=== PATIENT | female | born 1975 | race Caucasian/White ===

== ENCOUNTER → 2023-06-05 23:09 | Outpatient (CLI) | payer OTHER, SELFPAY ==
[2023-06-05 18:59] LABS: Amphetamine/Metha Screen,Urine Negative ng/ml (<1000)
[2023-06-05 19:00] LABS: Barbiturates Screen,Urine Negative ng/ml (<200); Benzodiazepines Screen,Urine Negative ng/ml (<200)
[2023-06-05 19:02] LABS: Cannabinoid Screen,Urine Negative ng/ml (<50)
[2023-06-05 19:03] LABS: Cocaine Screen,Urine Negative ng/ml (<300); Methadone Screen,Urine Negative ng/ml (<300)
[2023-06-05 19:04] LABS: Microalbumin < 6.000 mg/L (0-16.7); Opiate Screen,Urine Negative ng/ml (<300)
[2023-06-05 19:05] LABS: Phencyclidine Screen,Urine Negative ng/ml (<25)
[2023-06-05 19:08] LABS: Alanine Aminotransferase 38 U/L (12-78); Albumin Level 4.1 g/dl (3.5-5.0); Alkaline Phosphatase 133 U/L (38-126); Anion Gap 14.8 mEq/L (5-15); Aspartate Amino Transferase 45 U/L (14-36); Bilirubin,Total 0.3 mg/dl (0.2-1.3); Blood Urea Nitrogen 14 mg/dl (7-17); Calcium 10.2 mg/dl (8.4-10.2); Carbon Dioxide 34 mmol/L (22.0-30.0); Chloride 93 mmol/L (98-107); Cholesterol 203 mg/dl (140-200); Erythrocyte Sedimentation Rate 43 mm/hr (0-20); Estimated Glomerular Filt Rate 67 ml/min (>60); GFR (African American) 82 ML/MIN (>60); Glucose 100 mg/dl (74-100); HDL Cholesterol 68 mg/dl (40-60); Potassium 3.8 mmoL/L (3.5-5.1); Sodium 138 mmol/L (136-145); Total Protein,Serum 8.1 g/dl (6.3-8.2); Triglycerides 148 mg/dl (30-150); VLDL Cholesterol 30 mg/dL (0-40)
[2023-06-05 19:11] LABS: Basophils # 0.1 K/mm3 (0-0.2); Basophils % 0.8 % (0.1-2.0); Creatinine,Urine Random 22 mg/dL (Not Estab.); Eosinophils # 0.2 K/mm3 (0.0-0.4); Eosinophils % 2.7 % (0.1-12.0); Hematocrit 41.5 % (37.0-47.0); Hemoglobin 14.2 g/dL (12.2-16.2); Lymphocytes # 4.3 K/mm3 (0.7-4.5); Mean Corpuscular HGB Conc 34.3 g/dL (31.8-35.4); Mean Corpuscular Hemoglobin 31.6 pg (27.0-31.2); Mean Corpuscular Volume 92.3 fl (81-99); Mean Platelet Volume 9.6 fl (7.4-10.4); Monocytes # 0.4 K/mm3 (0.1-1.0); Monocytes % 4.5 % (1.7-9.3); Neutrophils # 3.8 K/mm3 (1.8-7.8); Platelet Count 237 K/mm3 (142-424); Red Blood Count 4.49 M/mm3 (4.20-5.40); Red Cell Distribution Width 13.7 % (11.5-17.5); White Blood Count 8.8 K/mm3 (4.8-10.8)
[2023-06-05 19:18] LABS: C-Reactive Protein 4.8 mg/L (0-4)
[2023-06-07 09:47] LABS: HBsAg Screen Negative (Negative); HCV Ab Non Reactive (Non Reactive); HIV Screen 4th Generation wRfx Non Reactive (Non Reactive); Hep A Ab, IGM Negative (Negative); Hep B Core Ab, IgM Negative (Negative)
[2023-06-23 08:52] LABS: Rheumatoid Factor IGA < 7 U (<7)
== END ==
PROVIDERS: PCP Internal Medicine; Visit Provider Internal Medicine
DX: I00 Rheumatic fever without heart involvement (principal); Z79.899 Other long term (current) drug therapy; Z11.4 Encounter for screening for human immunodeficiency virus [HIV]
CPT/HCPCS: 80053; 80061; 80074; 80305; 82043; 82570; 84443; 85025; 85651; 86140; 86431; 86703; G0432

== ENCOUNTER → 2023-07-07 10:23 | Outpatient (CLI) | payer OTHER, SELFPAY ==
[2023-07-07 18:33] LABS: Barbiturates Screen,Urine Negative ng/ml (<200)
[2023-07-07 18:34] LABS: Amphetamine/Metha Screen,Urine Negative ng/ml (<1000); Benzodiazepines Screen,Urine Negative ng/ml (<200)
[2023-07-07 18:35] LABS: Cannabinoid Screen,Urine Negative ng/ml (<50)
[2023-07-07 18:36] LABS: Cocaine Screen,Urine Negative ng/ml (<300); Methadone Screen,Urine Negative ng/ml (<300)
[2023-07-07 18:37] LABS: Opiate Screen,Urine Negative ng/ml (<300)
[2023-07-07 18:38] LABS: Phencyclidine Screen,Urine Negative ng/ml (<25)
== END ==
PROVIDERS: PCP Internal Medicine; Visit Provider Internal Medicine
DX: Z79.899 Other long term (current) drug therapy (principal)
CPT/HCPCS: 80305

== ENCOUNTER → 2023-08-05 18:30 | Outpatient (CLI) | payer OTHER, SELFPAY ==
[2023-08-05 17:13] LABS: Amphetamine/Metha Screen,Urine Negative ng/ml (<1000)
[2023-08-05 17:14] LABS: Cannabinoid Screen,Urine Negative ng/ml (<50)
[2023-08-05 17:15] LABS: Barbiturates Screen,Urine Negative ng/ml (<200)
[2023-08-05 17:16] LABS: Benzodiazepines Screen,Urine Negative ng/ml (<200)
[2023-08-05 17:18] LABS: Methadone Screen,Urine Negative ng/ml (<300); Opiate Screen,Urine Negative ng/ml (<300)
[2023-08-05 17:19] LABS: Cocaine Screen,Urine Negative ng/ml (<300)
[2023-08-05 17:21] LABS: Phencyclidine Screen,Urine Negative ng/ml (<25)
== END ==
PROVIDERS: PCP Internal Medicine; Visit Provider Internal Medicine
DX: Z79.899 Other long term (current) drug therapy (principal)
CPT/HCPCS: 80305

== ENCOUNTER 2023-09-01 23:43 | Outpatient (CLI) | payer OTHER, SELFPAY ==
[2023-09-01 22:07] LABS: Amphetamine/Metha Screen,Urine Negative ng/ml (<1000); Barbiturates Screen,Urine Negative ng/ml (<200); Benzodiazepines Screen,Urine Negative ng/ml (<200); Cannabinoid Screen,Urine Negative ng/ml (<50); Cocaine Screen,Urine Negative ng/ml (<300); Methadone Screen,Urine Negative ng/ml (<300); Opiate Screen,Urine Negative ng/ml (<300); Phencyclidine Screen,Urine Negative ng/ml (<25)
== END 2023-09-01 23:59 ==
LOC: LAB.DROPOF 23:44
PROVIDERS: PCP Internal Medicine; Visit Provider Internal Medicine
DX: G89.29 Other chronic pain (principal); M79.604 Pain in right leg; M79.605 Pain in left leg
CPT/HCPCS: 80307

== ENCOUNTER 2023-10-15 14:00 | Outpatient (RCR) | payer OTHER, SELFPAY ==
--- NOTE | 2023-08-26 11:09 | HMH.PTOPWND ---
Rehab Outpt Wound Evaluation Rehab OP Wound Evaluation Start: 08/26/23 10:51 Freq: Status: Active Protocol: Document 08/26/23 10:51 KYA (Rec: 08/26/23 11:09 KYA [id number]) E-signed By Matthew Ma, PT Subjective/History History History This is the initial PT eval for Deanne Davis, 47 yowf who presents with c/o B LE edema, L worse than R, x ~ 4-5 yrs. She reports no c/o pain, but increasing instances of numbness/tingling in B LE. She reports difficulty with ambulation and ADLs due to her edema. She reports PMH of CCY , tubal ligation, HTN, heart failure, COPD, ALEXA. Subjective Subjective Currently no c/o pain in B LE. 1/4 TTP note to B lower leg. 1+ pitting edema noted to R lower leg with mild fibrotic edema underlying, no pitting edema to L lower leg with moderate fibrotic edema noted. New diagnosis of cancer in past 12 No months? Lymphedema Eval Classification of Lymphedema Secondary Lymphedema Yes Stemmer's sign Stemmer's Sign yes Stage of Lymphedema Lymphedema stages Stage II (Pitting edema, increased fibrosis w/ decreased pitting) Skin Changes Dry Skin Yes Redness Yes Brittle Uneven Nails Yes Other Changes Yes Affected Extremities Areas Affected by Lymphedema/Edema Right Lower Extremity,Left Lower Extremity Manual Lymphatic Drainage Treatment Area MLD Treatment Area Right Lower Extremity,Left Lower Extremity Wound Problems/Impairments Impairments Problems/Impairmments Palpation Tenderness,Impaired Strength,Impaired Endurance, Impaired Transfers,Impaired Gait Pattern,Impaired Walking, Impaired Standing,Impaired Household Care,Increased Edema ,Lymphedema Present,Subjective C/O Pain,Impaired Self Care/ Self Management Prognosis Rehab Potential Good Clinical Impression Consistent with Diagnosis Yes Short Term Goals Number of Weeks 2 Decrease Edema Yes: no pitting edema Patient to Understand Lymphedema Yes Treatment and Exercises Decrease Girth Measurments by (cm) Yes: B LE total by 5 cm ea Prison Goals Number of Weeks 4 Decreased Palpation Tenderness Yes: 0/4 B LE Increase Ability to Walk Yes Decrease Lymphedema Yes: mild fibrotic edema Patient to be Ind w/ HEP Yes Patient to be Ind w/ [place] Yes Compression Garments Patient to Adhere Lymphedema Precautions Yes Decrease Girth Measurments by (cm) Yes: B LE total by 15 cm ea Outpatient Therapy Plan of Care Treatment Plan May Include Therapeutic Exercise Including Home Yes Exercise Program Manual Therapy Techniques Yes Neuromuscular Re-education Yes Therapeutic Activities to Return to Yes Previous Functional/Work Level ADL/Self Care Education Yes Orthotics/Bracing/Splinting Yes Vasopneumatic Compression Pump Yes Manual Lymphatic Drainage Yes Eval/Re-Eval Yes Frequency Times per week 2 Duration Number of Weeks 4 Addendums This patient is a candidate for social No or vocational rehab? Patient/Guardian verbally acknowledges Yes understanding of treatment program and consents to further treatment? Patient/Guardian verbally acknowledges Yes understanding of diagnosis, prognosis and goals for treatment? Eval Complexity PT Charges 54338 - High Complexity PHYSICIAN CERTIFICATION: I certify the specified therapy services for Deanne Davis are required, authorized, and reviewed every 30 days.
== END 2023-10-15 14:05 | disposition home or self-care (01) ==
LOC: PT 14:00
PROVIDERS: PCP Internal Medicine; Visit Provider Internal Medicine
DX: I89.0 Lymphedema, not elsewhere classified (principal)
CPT/HCPCS: 97140; 97163

== ENCOUNTER 2024-11-02 14:15 | Outpatient (CLI) | payer OTHER, SELFPAY ==
[2024-11-02 19:51] LABS: Basophils # 0.1 K/mm3 (0-0.2); Basophils % 0.3 % (0.1-2.0); Eosinophils # 5.1 K/mm3 (0.0-0.4); Hematocrit 38.4 % (37.0-47.0); Hemoglobin 13.3 g/dL (12.2-16.2); Lymphocytes # 3.5 K/mm3 (0.7-4.5); Mean Corpuscular HGB Conc 34.6 g/dL (31.8-35.4); Mean Corpuscular Hemoglobin 30.6 pg (27.0-31.2); Mean Corpuscular Volume 88.5 fl (81-99); Mean Platelet Volume 9.4 fl (7.4-10.4); Monocytes % 7.3 % (1.7-9.3); Neutrophils # 15.8 K/mm3 (1.8-7.8); Neutrophils % 59.4 % (37.0-80.0); Platelet Count 486 K/mm3 (142-424); Red Blood Count 4.34 M/mm3 (4.20-5.40); Red Cell Distribution Width 14.3 % (11.5-17.5); White Blood Count 26.7 K/mm3 (4.8-10.8)
[2024-11-02 19:54] LABS: MANUAL DIFFERENTIAL MANUAL DIFFERENTIAL (MANUAL DIFF)
[2024-11-02 20:43] LABS: Eosinophils % 1 % (0-3); Lymphocytes % 17 % (10-50); Monocytes % 14 % (2-9); Neutrophils % 68 % (42-76); Platelet Estimate Slight Increase; RBC Morphology Normal; Total Cells Counted 100
[2024-11-02 21:22] LABS: Albumin Level 3.7 g/dl (3.5-5.0); Potassium 3.6 mmoL/L (3.5-5.1); Sodium 121 mmol/L (136-145)
[2024-11-02 21:24] LABS: Blood Urea Nitrogen 11 mg/dl (7-17); Estimated Glomerular Filt Rate 107 ml/min (>60); GFR (African American) 130 ML/MIN (>60)
[2024-11-02 21:25] LABS: Alanine Aminotransferase 50 U/L (12-78); Albumin/Globulin Ratio 1.1 (1.1-1.8); Alkaline Phosphatase 215 U/L (38-126); Aspartate Amino Transferase 50 U/L (14-36); Bilirubin,Total 0.9 mg/dl (0.2-1.3); Calcium 8.7 mg/dl (8.4-10.2); Globulin 3.5 g/dL (1.3-3.2); Glucose 93 mg/dl (74-100); Magnesium 1.5 mg/dl (1.6-2.3); Total Protein,Serum 7.2 g/dl (6.3-8.2)
[2024-11-02 21:32] LABS: Anion Gap 14.6 mEq/L (5-15); Carbon Dioxide 36 mmol/L (22.0-30.0)
[2024-11-02 22:20] LABS: Chloride 74 mmol/L (98-107)
== END 2024-11-02 23:59 | disposition home or self-care (01) ==
LOC: LAB.DROPOF 11-03 13:19
PROVIDERS: PCP Internal Medicine; Visit Provider Internal Medicine
DX: Z00.00 Encounter for general adult medical examination without abnormal findings (principal); I89.0 Lymphedema, not elsewhere classified
CPT/HCPCS: 80053; 83735; 85007; 85025; 85027